=== PATIENT | male | born 1975 | race Caucasian/White ===

== ENCOUNTER → 2019-10-02 16:07 | Outpatient (CLI) | payer OTHER, SELFPAY ==
[2019-10-02 17:51] LABS: Coronavirus 19 IgG Antibody Negative (Negative); Coronavirus 19 IgM Antibody Negative (Negative)
[2019-10-04 14:51] LABS: Covid-19 Nasal PCR Sendout Lex Not Detected
== END ==
PROVIDERS: PCP Nurse Practitioner; Visit Provider Nurse Practitioner
DX: Z03.818 Encounter for observation for suspected exposure to other biological agents ruled out (principal)
CPT/HCPCS: 36415; 86328; U0004

== ENCOUNTER 2020-05-29 12:02 | Emergency (ER) | payer BC, SELFPAY ==
[2020-05-29 12:11] VITALS: BP 195/89; PULSE 105; RESP 16; TEMP 36.6; O2SAT 98; BMI 31.0
--- NOTE | 2020-05-29 12:21 | HMH.EDGENADL ---
ED Disposition Clinical Impression: Swelling of both hands, Bilateral swelling of feet, Psoriatic arthritis, Psoriasis Rheumatoid arthritis Qualifiers: Rheumatoid arthritis location: unspecified site Rheumatoid factor presence: unspecified presence Qualified Code(s): M06.9 - Rheumatoid arthritis, unspecified Disposition: Home, Self-Care Condition on Discharge: Good Instructions: DI for Psoriatic Arthritis, DI for Psoriasis, DI for Rheumatoid Arthritis Additional Instructions: Call Dr. Morales on Sunday for follow-up. Referrals: Ariana España APRN [Primary Care Provider] - - Critical Care Critical Care Time: No Attestation: On 05/29/20, the high probability of a clinically significant, sudden or life threatening deterioration of the following system(s) required my full and direct attention, intervention and personal management. The time I documented below is in addition to time spent performing reported procedures but includes the following listed in this critical care notation. Medical Decision Making - Alex Inquiry Pt receiving controlled substance: No Vital Signs: 05/29/20 12:11 05/29/20 12:38 Temperature 98 F Temperature Source Oral Pulse Rate [Radial] 105 H 102 H Respiratory Rate 16 Blood Pressure [Right Arm] 195/89 H 186/86 H Blood Pressure Mean [Right Arm] 124 119 Blood Pressure Source [Right Arm] Automatic Cuff Blood Pressure Position [Right Arm] Sitting Sitting 02 Sat by Pulse Oximetry 98 97 Oxygen Delivery Method Room Air Room Air - Lab Data Lab Results 05/29/20 12:55: WBC 10.3, RBC 5.47, Hgb 16.4, Hct 50.0, MCV 91.5, MCH 29.9, MCHC 32.7, RDW 13.3, Plt Count 208, MPV 7.6, Neut % (Auto) 76.3, Lymph % (Auto) 15.5, [place] % (Auto) 4.4, Eos % (Auto) 3.4, Baso % (Auto) 0.3, Neut # (Auto) 7.9 H, Lymph # (Auto) 1.6, [place] # (Auto) 0.5, Eos # (Auto) 0.4, Baso # (Auto) 0.0 05/29/20 12:55: Sodium 140, Potassium 3.9, Chloride 108 H, Carbon Dioxide 27, Anion Gap 8.9, BUN 11, Creatinine 0.90, Estimated Creat Clear 138, Estimated GFR 91, Est GFR ( Amer) 110, Glucose 111 H, Calcium 9.1, Total Bilirubin 1.1, AST 29, ALT 23, Alkaline Phosphatase 85, Total Protein 7.3, Albumin 4.3, Globulin 3.0, Albumin/Globulin Ratio 1.4 Result diagrams: 05/29/20 12:55 05/29/20 12:55 - Physician Consults Physician Consulted: Ton Morales Time: 13:40 Reason -: Other (Rheumatology) Comment/Response: Recommends that the patient follow-up with Dr. Hill on Sunday. The patient only takes methotrexate once a week, therefore does not require any change in his dosing at this time. Discussed steroids. He says that steroids may help the patient's joint swelling and pain in the short-term but could cause a flare of his psoriatic rash. If patient desires steroids he would recommend a Medrol Dosepak. I discussed this with the patient. 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 I will order an injection of Decadron. General Adult HPI - General Chief complaint: PAIN Stated complaint: Swollen both hands/arms/ legs Time Seen by Provider: 05/29/20 12:37 Mode of Arrival: Ambulatory Limitations: No Limitations Description of Symptoms (Recalled from ER Triage Doc. by RN): TO ED PER [employer] CAR WITH C/O JESSICA HANDS AND FEET SWELLING STARTING YESTERDAY C/O JOINT PAIN. PT RECENTLY TAKEN OFF REMICADE AND PLACED BACK ON METHOTREXATE THIS WEEK. - History of Present Illness HPI narrative: Complains of hands, feet, forearms swelling since yesterday. Says it was hard to get his boots off after work yesterday. His joints in his hands were sore yesterday but that has improved today. He has generalized itching as well. He has psoriasis, psoriatic arthritis, and rheumatoid arthritis. He sees Dr. Morales in [place]. He states that he was on Remicade for the past 3 to 4 months. Prior to that he had been on methotrexate.
[2020-05-29 12:38] VITALS: BP 186/86; PULSE 102; O2SAT 97
[2020-05-29 13:10] LABS: Chloride 108 mmol/L (98-107); Potassium 3.9 mmoL/L (3.5-5.1); Sodium 140 mmol/L (136-145)
[2020-05-29 13:11] LABS: Basophils % 0.3 % (0.1-2.0); Eosinophils # 0.4 K/mm3 (0.0-0.4); Eosinophils % 3.4 % (0.1-12.0); Hemoglobin 16.4 g/dL (14.1-18.0); Lymphocytes # 1.6 K/mm3 (0.7-4.5); Lymphocytes % 15.5 % (10-50); Mean Corpuscular HGB Conc 32.7 g/dL (31.8-35.4); Mean Corpuscular Hemoglobin 29.9 pg (27.0-31.2); Mean Corpuscular Volume 91.5 fl (80-94); Mean Platelet Volume 7.6 fl (7.4-10.4); Monocytes # 0.5 K/mm3 (0.1-1.0); Monocytes % 4.4 % (1.7-9.3); Neutrophils # 7.9 K/mm3 (1.8-7.8); Neutrophils % 76.3 % (37.0-80.0); Platelet Count 208 K/mm3 (142-424); Red Blood Count 5.47 M/mm3 (4.60-6.20); Red Cell Distribution Width 13.3 % (11.5-17.5); White Blood Count 10.3 K/mm3 (4.8-10.8)
[2020-05-29 13:13] LABS: Alanine Aminotransferase 23 U/L (12-78); Albumin Level 4.3 g/dl (3.5-5.0); Albumin/Globulin Ratio 1.4 (1.1-1.8); Alkaline Phosphatase 85 U/L (38-126); Anion Gap 8.9 mEq/L (5-15); Aspartate Amino Transferase 29 U/L (17-59); Bilirubin,Total 1.1 mg/dl (0.2-1.3); Blood Urea Nitrogen 11 mg/dl (9-20); Carbon Dioxide 27 mmol/L (22.0-30.0); Creatinine Clearance Estimated 138 mL/min (50-200); Estimated Glomerular Filt Rate 91 ml/min (>60); GFR (African American) 110 ML/MIN (>60); Total Protein,Serum 7.3 g/dl (6.3-8.2)
[2020-05-29 13:14] LABS: Calcium 9.1 mg/dl (8.4-10.2); Glucose 111 mg/dl (74-100)
[2020-05-29 13:34] VITALS: PULSE 90; RESP 20; O2SAT 99
--- NOTE | 2020-05-29 13:36 | PC.NURSE ---
attempting to contact pts rheumatoid
--- NOTE | 2020-05-29 13:37 | PC.NURSE ---
Dr Stephen speaking with [employer] MD for rheumatoid
[2020-05-29 14:00] VITALS: BP 141/65; PULSE 94; RESP 20; TEMP 36.6; O2SAT 98
== END 2020-05-29 14:04 | disposition home or self-care (01) ==
PROVIDERS: Emergency Provider Emergency Medicine; PCP Nurse Practitioner
DX: L40.50 Arthropathic psoriasis, unspecified (principal); L40.9 Psoriasis, unspecified; M06.9 Rheumatoid arthritis, unspecified; Z79.899 Other long term (current) drug therapy; F17.210 Nicotine dependence, cigarettes, uncomplicated
CPT/HCPCS: 80053; 85025; 96374; 99282

== ENCOUNTER → 2021-12-22 14:55 | Outpatient (CLI) | payer BC, SELFPAY ==
[2021-12-22 18:43] LABS: Coronavirus 19, PCR Not Detected (NotDetected); Influenza A, PCR Not Detected (NotDetected); Influenza B, PCR Not Detected (NotDetected)
[2021-12-22 19:11] LABS: Basophils # 0.1 K/mm3 (0-0.2); Basophils % 0.9 % (0.1-2.0); Eosinophils # 0.2 K/mm3 (0.0-0.4); Eosinophils % 3.7 % (0.1-12.0); Hematocrit 53.1 % (42.0-52.0); Hemoglobin 17.6 g/dL (14.1-18.0); Lymphocytes # 2.1 K/mm3 (0.7-4.5); Lymphocytes % 35.3 % (10-50); Mean Corpuscular HGB Conc 33.1 g/dL (31.8-35.4); Mean Corpuscular Hemoglobin 30.8 pg (27.0-31.2); Mean Corpuscular Volume 93.1 fl (80-94); Mean Platelet Volume 10.3 fl (7.4-10.4); Monocytes # 0.6 K/mm3 (0.1-1.0); Monocytes % 10.2 % (1.7-9.3); Platelet Count 290 K/mm3 (142-424); Red Blood Count 5.71 M/mm3 (4.60-6.20); Red Cell Distribution Width 13.7 % (11.5-17.5)
== END ==
PROVIDERS: PCP Nurse Practitioner; Visit Provider Nurse Practitioner
DX: Z20.822 Contact with and (suspected) exposure to COVID-19 (principal); J06.9 Acute upper respiratory infection, unspecified
CPT/HCPCS: 85025; C9803; U0003; U0005

== ENCOUNTER → 2022-08-28 12:24 | Outpatient (CLI) | payer BC, SELFPAY ==
--- NOTE | 2022-08-28 12:32 | XR_ITS ---
FINAL REPORT CLINICAL HISTORY: chest pain, acute URI-- smoker COMPARISON: none FINDINGS: PA and lateral views of the chest are obtained. There is no prior exam for comparison. The cardiac and mediastinal silhouettes are within normal limits. The lungs are clear. There is no pleural effusion, pneumothorax, or acute osseous abnormality. IMPRESSION: No radiographic evidence of acute cardiac or pulmonary disease. Reviewed, Interpreted and Dictated by Kayla Khalil MD Transcribed by Mcakenzie Powers Authenticated and [facility]
[2022-08-28 12:44] LABS: Adenovirus,PCR Not Detected (NotDetected); Bordetella Pertussis Not Detected (NotDetected); Chlamydophila Pneumoniae, PCR Not Detected (NotDetected); Coronavirus 19, PCR Not Detected (NotDetected); Coronavirus 229E Not Detected (NotDetected); Coronavirus NL63 Not Detected (NotDetected); Coronavirus OC43 Not Detected (NotDetected); Coronovirus HKU1,PCR Not Detected (NotDetected); Human Metapneumovirus Not Detected (NotDetected); Influenza A, PCR Not Detected (NotDetected); Influenza AH1, 2009 Not Detected (NotDetected); Influenza AH1, PCR Not Detected (NotDetected); Influenza AH3,PCR Not Detected (NotDetected); Influenza B, PCR Not Detected (NotDetected); Mycoplasma Pneumoniae, PCR Not Detected (NotDetected); Parainfluenza 1, PCR Not Detected (NotDetected); Parainfluenza 2, PCR Not Detected (NotDetected); Parainfluenza 3, PCR Not Detected (NotDetected); Parainfluenza 4, PCR Not Detected (NotDetected); Respiratory Syncytial Virus Not Detected (NotDetected); Rhinovirus/Enterovirus Not Detected (NotDetected)
--- NOTE | 2022-08-28 13:03 | ECG_ITS ---
APPROVED REPORT Exam: Resting ECG HR:88 bpm ECG Measurements Heart Rate 88 AXES NE 163 P 36 QRSd 94 QRS 52 QT 346 T 44 QTc 392 Conclusion SINUS RHYTHM NORMAL ECG UNCONFIRMED REPORT Electronically signed by : Edgardo Orellana MD 08/28/2022 21:21:34
[2022-08-28 13:19] LABS: D-Dimer 1.01 ug/mL (0.0-0.5)
[2022-08-28 13:48] LABS: Hemoglobin A1C 5.3 % (4.0-6.0)
[2022-08-28 14:39] LABS: Alanine Aminotransferase 166 U/L (12-78); Albumin/Globulin Ratio 1.6 (1.1-1.8); Alkaline Phosphatase 116 U/L (38-126); Anion Gap 15.1 mEq/L (5-15); Aspartate Amino Transferase 112 U/L (17-59); Bilirubin,Total 0.6 mg/dl (0.2-1.3); Blood Urea Nitrogen 13 mg/dl (9-20); Calcium 8.6 mg/dl (8.4-10.2); Carbon Dioxide 29 mmol/L (22.0-30.0); Chloride 99 mmol/L (98-107); Estimated Glomerular Filt Rate 80 ml/min (>60); GFR (African American) 97 ML/MIN (>60); Globulin 2.5 g/dL (1.3-3.2); Glucose 106 mg/dl (74-100); Potassium 4.1 mmoL/L (3.5-5.1); Sodium 139 mmol/L (136-145); Total Protein,Serum 6.5 g/dl (6.3-8.2)
[2022-08-28 14:56] LABS: Troponin I < 0.01 ng/ml (0.00-0.034)
[2022-08-28 15:09] LABS: Basophils % 0.3 % (0.1-2.0); Eosinophils % 0.3 % (0.1-12.0); Hematocrit 47.2 % (42.0-52.0); Hemoglobin 15.3 g/dL (14.1-18.0); Lymphocytes # 0.4 K/mm3 (0.7-4.5); Lymphocytes % 5.3 % (10-50); Mean Corpuscular HGB Conc 32.5 g/dL (31.8-35.4); Mean Corpuscular Hemoglobin 29.6 pg (27.0-31.2); Mean Corpuscular Volume 91.1 fl (80-94); Mean Platelet Volume 8.4 fl (7.4-10.4); Monocytes # 0.6 K/mm3 (0.1-1.0); Monocytes % 7.2 % (1.7-9.3); Neutrophils # 7.2 K/mm3 (1.8-7.8); Neutrophils % 86.9 % (37.0-80.0); Platelet Count 194 K/mm3 (142-424); Red Blood Count 5.18 M/mm3 (4.60-6.20); Red Cell Distribution Width 14.1 % (11.5-17.5); Thyroid Stimulating Hormone 0.24 uIU/mL (0.465-4.68); White Blood Count 8.2 K/mm3 (4.8-10.8)
[2022-08-28 15:11] LABS: MANUAL DIFFERENTIAL MANUAL DIFFERENTIAL (MANUAL DIFF)
[2022-08-28 17:29] LABS: Lymphocytes % 2 % (10-50); Monocytes % 10 % (2-9); Neutrophils % 88 % (42-76); Platelet Estimate Normal; RBC Morphology Normal; Total Cells Counted 100
== END ==
PROVIDERS: PCP Nurse Practitioner; Visit Provider Nurse Practitioner
DX: J06.9 Acute upper respiratory infection, unspecified (principal); R07.9 Chest pain, unspecified; R61 Generalized hyperhidrosis
CPT/HCPCS: 36415; 71046; 80053; 83036; 84443; 84484; 85007; 85025; 85378; 87581; 87632; 87635; 87798; 93005; C9803; U0003; U0005

== ENCOUNTER 2022-08-30 10:55 | Observation (INO) | payer BC, SELFPAY ==
[2022-08-30] VITALS (24 sets, daily range): BP systolic 103–127; BP diastolic 62–95; PULSE 84–126; RESP 13–21; TEMP 37.3–39.4; O2SAT 93–98; BMI 31.5; BMI 29.9
--- NOTE | 2022-08-30 11:05 | ECG_ITS ---
APPROVED REPORT Exam: Resting ECG HR:119 bpm ECG Measurements Heart Rate 119 AXES OR 120 P 28 QRSd 93 QRS 66 QT 292 T 44 QTc 363 Conclusion SINUS TACHYCARDIA ABNORMAL RHYTHM ECG UNCONFIRMED REPORT Electronically signed by : Edgardo Orellana MD 08/31/2022 09:27:45
--- NOTE | 2022-08-30 11:19 | XR_ITS ---
FINAL REPORT CLINICAL HISTORY: DIZZINESS fever non productive cough tested neg for flu and covid sunday COMPARISON: 08/28/2022 FINDINGS: There is no evidence of effusion or other pleural disease. The mediastinum has a normal appearance. The cardiac silhouette is unremarkable. IMPRESSION: Unremarkable chest exam. No change from the prior exam. Reviewed, Interpreted and Dictated by Ryan Gonsalez MD Transcribed by Susanna Vanessa Authenticated and [facility]
--- NOTE | 2022-08-30 11:25 | HMH.EDNVD ---
Discharge Plan Disposition Patient Disposition: Admitted Prescriptions Prescriptions: No Action albuterol sulfate 90 mcg/actuation HFA aerosol inhaler 2 puff inhalation Q4-6H PRN (Reason: shortness of breath or wheezing) Qty: 8.5 0RF folic acid 1 mg tablet 1 mg PO DAILY Label Comments: TAKE 1 TABLET BY MOUTH EVERY DAY prednisone 20 mg tablet 20 mg PO .COMPLEX Rx Instructions: 20 mg orally BID x 5 days then daily x 5 days dextromethorphan-guaifenesin 60-1,200 mg tablet extended release 12 hr 1 tab PO Q12H levofloxacin 500 mg tablet 500 mg PO Q24H methotrexate sodium 2.5 MG tablet 2.5 mg PO DAILY Referrals Follow up/Referrals: Ariana España APRN [Primary Care Provider] - See instructions Clinical Impressions Clinical Impression: Cardiomyopathy Discharge ED Provider: Chi Salazar Nausea/Vomiting/Diarrhea HPI General Chief complaint: Nausea/Vomiting/Diarrhea Stated complaint: vomiting, body aches, dizzy , h/a Time Seen by Provider: 08/30/22 11:25 Mode of Arrival: Wheelchair Source of Information: Patient and Spouse Limitations: No Limitations Description of Symptoms (Recalled from ER Triage Doc. by RN): PT REPORTS VOMITING, DIZZINESS, COUGH, CHILLS AND SWEATING, SEEEN BY PCP ON SUNDAY. GIVEN ABX, STERIODS FOR BACTERIAL INFECTION History of Present Illness HPI Narrative: The patient presents to the emergency department complaining of fevers, abdominal discomfort, and vomiting. This began 2 days ago. He was seen by his primary care provider and was prescribed Levaquin and diagnosed with bacterial bronchitis. The patient does take methotrexate for psoriatic arthritis. He states that he had diarrhea yesterday and before yesterday. However, he did not have any diarrhea today. He feels generalized weakness. MD complaint: nausea, vomiting, diarrhea and abdominal pain Related Data Home Medications Medication Instructions Recorded Confirmed methotrexate sodium 2.5 mg tablet 2.5 mg PO DAILY Arthritis 12/11/17 08/30/22 dextromethorphan-guaifenesin ER 60 1 tab PO Q12H Cough/cold 08/30/22 08/30/22 mg-1,200 mg tab,extend release,12hr folic acid 1 mg tablet 1 mg PO DAILY Supplement 08/30/22 08/30/22 levofloxacin 500 mg tablet 500 mg PO Q24H Infection 08/30/22 08/30/22 prednisone 20 mg tablet 20 mg PO .COMPLEX RECENT INFECTION 08/30/22 08/30/22 Previous Rx's Medication Instructions Recorded albuterol sulfate 90 mcg/actuation 2 puff inhalation Q4-6H PRN 08/28/22 aerosol inhaler shortness of breath or wheezing #8.5 grams Allergies Allergy/AdvReac Type Severity Reaction Status Date / Time No Known Allergies Allergy Verified 08/28/22 10:40 [facility] Disclaimer: The information contained in this section may have been updated after the patient was seen, as this information can be updated by other users. Medical History Arthritis Hypertension Psoriasis Surgical History History of foot surgery Social History Smoking Status: Current every day smoker tobacco type: cigarettes alcohol intake: never current occupational status: employed Travel in the last 8 weeks: None ROS Obtained: Yes All systems reviewed & no additional complaints except as documented Physical Exam General General appearance: alert Head Head exam: atraumatic Eye Eye exam: Present normal appearance; Absent scleral icterus or jaundice ENT ENT exam: Present normal exam Neck Neck exam: Present normal inspection and full ROM; Absent tenderness or meningismus Chest Chest inspection: Present normal inspection and symmetric chest wall rise; Absent tenderness Respiratory Respiratory exam: Present normal lung sounds bilaterally; Absent respiratory distress or accessory muscle use Cardiovascular Ca
--- NOTE | 2022-08-30 11:29 | PC.NURSE ---
PT TO RADIOLOGY
[2022-08-30 11:35] LABS: Lactic Acid 0.9 mmol/L (0.7-2.1)
[2022-08-30 11:36] LABS: Basophils % 0.3 % (0.1-2.0); Chloride 95 mmol/L (98-107); Eosinophils # 0.1 K/mm3 (0.0-0.4); Hemoglobin 15.7 g/dL (14.1-18.0); Lymphocytes # 0.6 K/mm3 (0.7-4.5); Mean Corpuscular HGB Conc 32.6 g/dL (31.8-35.4); Mean Corpuscular Hemoglobin 29.6 pg (27.0-31.2); Mean Corpuscular Volume 90.8 fl (80-94); Mean Platelet Volume 7.8 fl (7.4-10.4); Monocytes # 0.4 K/mm3 (0.1-1.0); Monocytes % 4.4 % (1.7-9.3); Neutrophils # 8.7 K/mm3 (1.8-7.8); Neutrophils % 88.3 % (37.0-80.0); Platelet Count 220 K/mm3 (142-424); Red Blood Count 5.29 M/mm3 (4.60-6.20); Red Cell Distribution Width 14.2 % (11.5-17.5); Sodium 135 mmol/L (136-145); White Blood Count 9.8 K/mm3 (4.8-10.8)
[2022-08-30 11:37] LABS: Potassium 3.5 mmoL/L (3.5-5.1)
[2022-08-30 11:39] LABS: Alanine Aminotransferase 195 U/L (12-78); Alkaline Phosphatase 161 U/L (38-126); Anion Gap 13.5 mEq/L (5-15); Aspartate Amino Transferase 200 U/L (17-59); Blood Urea Nitrogen 15 mg/dl (9-20); Calcium 8.4 mg/dl (8.4-10.2); Carbon Dioxide 30 mmol/L (22.0-30.0); Creatinine Clearance Estimated 116 mL/min (50-200); Estimated Glomerular Filt Rate 71 ml/min (>60); GFR (African American) 86 ML/MIN (>60); Glucose 109 mg/dl (74-100); Lipase 94 U/L (23-300)
[2022-08-30 11:40] LABS: Albumin Level 3.8 g/dl (3.5-5.0); Albumin/Globulin Ratio 1.2 (1.1-1.8); Globulin 3.1 g/dL (1.3-3.2); Total Protein,Serum 6.9 g/dl (6.3-8.2)
[2022-08-30 11:45] LABS: MANUAL DIFFERENTIAL MANUAL DIFFERENTIAL (MANUAL DIFF)
--- NOTE | 2022-08-30 11:55 | PC.NURSE ---
CRITICAL TROP RECEIVED FROM TORREY IN LAB. 22.3. PT NAME AND R/V. DR CREWS NOTIFIED. ORDERS RECEIVED AT THIS TIME
--- NOTE | 2022-08-30 11:59 | PC.NURSE ---
PT GIVEN ASA AND UPDATED ON POC. AT BEDSIDE
[2022-08-30 12:01] LABS: Microscopic, Urine URINE MICROSCOPIC (MICROSCOPIC)
[2022-08-30 12:03] LABS: Appearance,Urine CLEAR (Clear); Blood, Urine 2+ (Negative); Color,Urine AMBER (Yellow); Glucose,Urine (UA) Negative (Negative); Ketones,Urine TRACE (Negative); Leukocyte Esterase,Urine Negative (Negative); Nitrate,Urine Negative (Negative); Protein,Urine 2+ (Negative); Specific Gravity, Urine 1.025 (1.005-1.030); Urobilinogen,Urine >=8.0 EU/dl (0.2)
[2022-08-30 12:07] LABS: Bilirubin,Urine Negative (Negative)
--- NOTE | 2022-08-30 12:11 | PC.NURSE ---
leads to baker paint moved for better connection. Explained to why they were being moved
[2022-08-30 12:19] LABS: Bacteria,Urine 3+ /lpf; Squamous Epithelial Cell,Urine Occasional #/hpf (0-5); WBC,Urine Occasional #/hpf (0-3)
--- NOTE | 2022-08-30 12:35 | PC.NURSE ---
DR CREWS AT BEDSIDE TO UPDATE PT AND
[2022-08-30 12:39] LABS: Anisocytosis 1+; Lymphocytes % 11 % (10-50); Macrocytosis 1+; Monocytes % 6 % (2-9); Neutrophils % 83 % (42-76); Platelet Estimate Normal; Total Cells Counted 100
--- NOTE | 2022-08-30 12:51 | PC.NURSE ---
ROUNDED ON PT, UPDATED AT THIS TIME
--- NOTE | 2022-08-30 12:55 | PC.NURSE ---
ECHO AT BEDSIDE
--- NOTE | 2022-08-30 12:57 | PC.NURSE ---
CHARIS PHAM FROM CARDIOLOGY AT BEDSIDE
[2022-08-30 13:13] LABS: Coronavirus 19, PCR Not Detected (NotDetected); Influenza A, PCR Not Detected (NotDetected); Influenza B, PCR Not Detected (NotDetected)
--- NOTE | 2022-08-30 13:31 | PC.NURSE ---
DR CREWS SPEAKING WITH HOSPITALIST
--- NOTE | 2022-08-30 13:31 | EXP.CARD.CON ---
History of Present Illness History of Present Illness Consult date: 08/30/22 Requesting physician: Chi Salazar Consult reason: shortness of breath Chief complaint: SOA, weakness, Vomiting Additional Medical History:: 1. Tobacco use, 1 pack/day 2. Nausea, vomiting and weakness, 08/28/2022 A. Elevated troponins with mild cardiomyopathy (EF 40-45% on preliminary viewing) on echo without acute EKG changes History of present illness: The patient presents to the emergency department complaining of fevers, abdominal discomfort, and vomiting.? This began 2 days ago.? He was seen by his primary care provider and was prescribed Levaquin and diagnosed with bacterial bronchitis.? The patient does take methotrexate for psoriatic arthritis.? He states that he had diarrhea yesterday and before yesterday.? However, he did not have any diarrhea today.? He feels generalized weakness. MD complaint: nausea, vomiting, diarrhea and abdominal pain The above per Dr. Salazar Patient confirms events as noted above. He denies any history of cardiac problems. He does smoke. Nondiabetic Denies hypertension or hyperlipidemia Echocardiogram obtained in the ER with preliminary reading showing apical hypokinesis and EF of 40-45%. Discussed with Dr. Yoder and recommend proceeding with left heart catheterization to rule out coronary artery disease as etiology. Likely patient has viral myocarditis/cardiomyopathy due to recent upper respiratory infection. [facility] Disclaimer: The information contained in this section may have been updated after the patient was seen, as this information can be updated by other users. Medical History Arthritis Hypertension Psoriasis Surgical History History of foot surgery Social History Smoking Status: Current every day smoker tobacco type: cigarettes alcohol intake: never current occupational status: employed Travel in the last 8 weeks: None Review of Systems Review of Systems Review of systems:: pertinent systems reviewed and negative unless documented below Constitutional Constitutional: Reports weakness *Cardiovascular Cardiovascular: Denies chest pain and Reports dyspnea on exertion *Respiratory Respiratory: Reports dyspnea on exertion *Gastrointestinal Gastrointestinal: Reports vomiting *Neurologic Neurologic: Reports weakness Exam Data for Last 24 hours Vital signs and Labs for Last 24 Hours: Temp Pulse Resp BP Pulse Ox 102.9 F H 116 H 21 112/77 96 08/30/22 10:56 08/30/22 11:57 08/30/22 11:57 08/30/22 11:57 08/30/22 11:57 Laboratory Results - last 24 hr 08/30/22 11:12: WBC 9.8, RBC 5.29, Hgb 15.7, Hct 48.0, MCV 90.8, MCH 29.6, MCHC 32.6, RDW 14.2, Plt Count 220, MPV 7.8, Neut % (Auto) 88.3 H, Lymph % (Auto) 6.0 L, [place] % (Auto) 4.4, Eos % (Auto) 1.0, Baso % (Auto) 0.3, Neut # (Auto) 8.7 H, Lymph # (Auto) 0.6 L, [place] # (Auto) 0.4, Eos # (Auto) 0.1, Baso # (Auto) 0.0, Total Counted 100, Neutrophils % (Manual) 83 H, Lymphocytes % (Manual) 11, Monocytes % (Manual) 6, Platelet Estimate Normal, Anisocytosis 1+, Macrocytosis 1+ 08/30/22 11:12: Sodium 135 L, Potassium 3.5, Chloride 95 L, Carbon Dioxide 30, Anion Gap 13.5, BUN 15, Creatinine 1.10, Estimated Creat Clear 116, Estimated GFR 71, Est GFR ( Amer) 86, Glucose 109 H, Calcium 8.4, Total Bilirubin 1.0, AST 200 H D, ALT 195 H, Alkaline Phosphatase 161 H, Troponin I 22.30 H, Total Protein 6.9, Albumin 3.8, Globulin 3.1, Albumin/Globulin Ratio 1.2, Lipase 94 08/30/22 11:12: Lactate 0.9 08/30/22 11:55: Urine Color Mena, Urine Appearance Clear, Urine pH 6.0, Ur Specific [place] 1.025, Urine Protein 2+, Urine Glucose (UA) Negative, Urine Ketones Trace, Urine Blood 2+, Urine Nitrate Negative, Urine Bilirubin Negative, Urine Urobilinogen >=8.0, Ur Leukocyte Esterase Negat
--- NOTE | 2022-08-30 13:33 | IR_ITS ---
APPROVED REPORT Patient Location: Inpatient PROCEDURES Left heart catheterization Left ventriculogram Selective coronary angiogram INDICATION Acute non-ST elevation myocardial infarction based on elevated troponin, Suspected myocarditis Informed consent was obtained prior to the procedure. COMPLICATIONS None Estimated Blood Loss: Less than 10 ML TECHNIQUE One percent lidocaine used to anesthetize the right anterior aspect of the wrist. The right radial artery was accessed via the Seldinger technique. A 6 [place] sheath was placed in the right radial artery. 150 mg magnesium sulfate, 800 mcg of nitroglycerin, 1mg Lidocaine and 5000 U Heparin were given through the arterial sheath. The papa catheter was also used to perform left heart catheterization, left ventriculogram and selective coronary angiogram. At the end of the procedure the sheath was removed good hemostasis was achieved using Traclet band, patient was transferred to the postop holding area in stable condition. 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 Standard therapy for myocarditis 2. Carvedilol Entresto 3. Empiric treatment for Lyme myocarditis with antibiotics until Lyme titers return 4. Supportive care Electronically signed by : Kurtis Yoder MD 08/31/2022 10:38:28
--- NOTE | 2022-08-30 14:10 | PC.NURSE ---
CONSENT SIGNED AND PT PREPPED FOR HEART CATH
[2022-08-30 14:50] LABS: Thyroid Stimulating Hormone 0.57 uIU/mL (0.465-4.68)
--- NOTE | 2022-08-30 14:52 | PC.NURSE ---
CM CONTACTED TO FOR ADMISSION
--- NOTE | 2022-08-30 15:02 | SUR.OPER ---
upon arrival to cathlab , patient was noted to have a large bullseye rash to left side abdomen
[2022-08-30 15:09] LABS: Hemoglobin A1C 5.3 % (4.0-6.0)
--- NOTE | 2022-08-30 15:37 | PC.NURSE ---
arrived by shalomer from cardiac catheterization technician
--- NOTE | 2022-08-30 20:07 | EXP.HP ---
History of Present Illness *Admission Date: 08/30/22 *Reason for visit:: weakness, elevated troponin *History of present illness: Mr. Garvin is a 46-year-old male with history of psoriatic arthritis who presented to the ER with complaint of fever, abdominal discomfort, vomiting that began 2 to 3 days ago. He was seen by his primary care provider and prescribed Levaquin due to an elevated white count and diagnosis of bacterial bronchitis. Did not feel any better so he came to the ER today for further evaluation. Of note he takes methotrexate and folic acid daily for psoriatic arthritis. States that he had had diarrhea yesterday but has not had any further today. Overall feels weak. Denies any chest pain, shortness of breath. In the ER, evaluation positive for elevated liver enzymes and troponin of 22. Cardiology was consulted and patient was taken to the [facility]. On evaluation in the [facility] he was found to have a targetoid lesion on his left hip. Left heart cath performed with no occlusions or coronary artery disease identified. Echocardiogram obtained showing preliminary read with decreased EF of 40 to 45% and some apical hypokinesis. Cardiology concern for cardiomyopathy/myocarditis. Requested admission for monitoring overnight after heart cath. On evaluation, patient is stable without any chest pain on room air. Family at bedside. Feeling okay at this time. [facility] Disclaimer: The information contained in this section may have been updated after the patient was seen, as this information can be updated by other users. Medical History Arthritis Hypertension Psoriasis Surgical History History of foot surgery Social History Smoking Status: Current every day smoker tobacco type: cigarettes alcohol intake: never current occupational status: employed Travel in the last 8 weeks: None Review of Systems Review of Systems Review of systems (narrative): 14 point review of systems performed, pertinent positives and negatives as per HPI Constitutional Constitutional: Reports weakness *Neurologic Neurologic: Reports weakness Meds Home Medications and Allergies Home Medications Medication Instructions Recorded Confirmed Type methotrexate sodium 2.5 mg tablet 2.5 mg PO DAILY Arthritis 12/11/17 08/30/22 History albuterol sulfate 90 mcg/actuation 2 puff inhalation Q4-6H PRN 08/28/22 08/30/22 Rx aerosol inhaler shortness of breath or wheezing #8.5 grams dextromethorphan-guaifenesin ER 60 1 tab PO Q12H Cough/cold 08/30/22 08/30/22 History mg-1,200 mg tab,extend release,12hr folic acid 1 mg tablet 1 mg PO DAILY Supplement 08/30/22 08/30/22 History levofloxacin 500 mg tablet 500 mg PO Q24H Infection 08/30/22 08/30/22 History prednisone 20 mg tablet 20 mg PO .COMPLEX RECENT INFECTION 08/30/22 08/30/22 History New Prescriptions to Start Prescriptions: Allergies Allergy/AdvReac Type Severity Reaction Status Date / Time No Known Allergies Allergy Verified 08/28/22 10:40 Exam Data for Last 24 hours Vital signs and Labs for Last 24 Hours: Temp Pulse Resp BP Pulse Ox 99.1 F 89 19 116/73 98 08/30/22 14:30 08/30/22 18:20 08/30/22 18:20 08/30/22 18:20 08/30/22 18:20 Laboratory Results - last 24 hr 08/30/22 11:12: WBC 9.8, RBC 5.29, Hgb 15.7, Hct 48.0, MCV 90.8, MCH 29.6, MCHC 32.6, RDW 14.2, Plt Count 220, MPV 7.8, Neut % (Auto) 88.3 H, Lymph % (Auto) 6.0 L, [place] % (Auto) 4.4, Eos % (Auto) 1.0, Baso % (Auto) 0.3, Neut # (Auto) 8.7 H, Lymph # (Auto) 0.6 L, [place] # (Auto) 0.4, Eos # (Auto) 0.1, Baso # (Auto) 0.0, Total Counted 100, Neutrophils % (Manual) 83 H, Lymphocytes % (Manual) 11, Monocytes % (Manual) 6, Platelet Estimate Normal, Anisocytosis 1+, Macrocytosis 1+ 08/30/22 11:12: Sodium 135 L, Potassium 3.5, Chloride 95 L, Carbon Di
[2022-08-31] VITALS: BP 119/75; PULSE 92; PULSE 97; RESP 19; TEMP 37.2; O2SAT 96
[2022-08-31 04:00] VITALS: BP 121/77; PULSE 90; RESP 20; TEMP 37.1; O2SAT 98; BMI 29.3
--- NOTE | 2022-08-31 05:01 | PC.NURSE ---
Patient has rested comfortable tonight. Patient did complain of a headache see MAY. Radial band off and gauze and tegaderm in place.
[2022-08-31 06:05] LABS: Basophils % 0.4 % (0.1-2.0); Eosinophils # 0.3 K/mm3 (0.0-0.4); Eosinophils % 3.6 % (0.1-12.0); Hematocrit 47.1 % (42.0-52.0); Hemoglobin 15.2 g/dL (14.1-18.0); Lymphocytes # 1.2 K/mm3 (0.7-4.5); Lymphocytes % 14.3 % (10-50); Mean Corpuscular HGB Conc 32.2 g/dL (31.8-35.4); Mean Corpuscular Hemoglobin 29.1 pg (27.0-31.2); Mean Corpuscular Volume 90.4 fl (80-94); Mean Platelet Volume 7.7 fl (7.4-10.4); Monocytes # 0.5 K/mm3 (0.1-1.0); Monocytes % 6.2 % (1.7-9.3); Neutrophils # 6.3 K/mm3 (1.8-7.8); Neutrophils % 75.5 % (37.0-80.0); Platelet Count 224 K/mm3 (142-424); Red Blood Count 5.21 M/mm3 (4.60-6.20); Red Cell Distribution Width 14.3 % (11.5-17.5); White Blood Count 8.4 K/mm3 (4.8-10.8)
[2022-08-31 06:14] LABS: Chloride 101 mmol/L (98-107)
[2022-08-31 06:15] LABS: Potassium 3.3 mmoL/L (3.5-5.1); Sodium 135 mmol/L (136-145)
[2022-08-31 06:17] LABS: Alanine Aminotransferase 139 U/L (12-78); Alkaline Phosphatase 144 U/L (38-126); Anion Gap 10.3 mEq/L (5-15); Aspartate Amino Transferase 108 U/L (17-59); Bilirubin,Total 0.6 mg/dl (0.2-1.3); Blood Urea Nitrogen 16 mg/dl (9-20); Carbon Dioxide 27 mmol/L (22.0-30.0); Creatinine Clearance Estimated 128 mL/min (50-200); Estimated Glomerular Filt Rate 90 ml/min (>60); GFR (African American) 109 ML/MIN (>60)
[2022-08-31 06:18] LABS: Albumin Level 3.3 g/dl (3.5-5.0); Albumin/Globulin Ratio 1.2 (1.1-1.8); Calcium 8.1 mg/dl (8.4-10.2); Globulin 2.8 g/dL (1.3-3.2); Glucose 124 mg/dl (74-100); Magnesium 2.2 mg/dl (1.6-2.3); Total Protein,Serum 6.1 g/dl (6.3-8.2)
[2022-08-31 06:23] LABS: C-Reactive Protein 154.3 mg/L (0-4)
[2022-08-31 06:57] LABS: Erythrocyte Sedimentation Rate 31 mm/hr (0-15)
[2022-08-31 07:59] VITALS: BP 109/70; PULSE 90; RESP 18; TEMP 36.8; O2SAT 96
[2022-08-31 08:00] VITALS: PULSE 100; O2SAT 98
--- NOTE | 2022-08-31 08:46 | HMH.PHAINT1 ---
Pharmacy Intervention Comments: Home medication list verified through external fill history from outside pharmacy and patient's rx bottles.
[2022-08-31 09:00] VITALS: PULSE 80
--- NOTE | 2022-08-31 09:51 | PC.NURSE ---
COURTESY TECH NOTE; ROUNDED ON PT 0830, PT DENIED NEED FOR DRINK, NEED FOR RESTROOM, AND NEED TO REPOSITION,CALL LIGHT WITHIN REACH, NO FURTHER REQUESTS AT THIS TIME Melodie CLINE, SRNA
--- NOTE | 2022-08-31 09:57 | EXP.CARD.PN ---
Subjective Subjective Date: 08/31/22 Time: 09:57 Principal diagnosis: Lyme myocarditis, Cardiomyopathy Interval history: 46-year-old white male in bed in no acute distress. Since starting antibiotics patient states he feels 99% better Patient is anxious to go home. Lyme titer is pending Exam Data for Last 24 hours Vital signs and Labs for Last 24 Hours: Temp Pulse Resp BP Pulse Ox 98.2 F 100 H 18 109/70 L 98 08/31/22 07:59 08/31/22 08:00 08/31/22 07:59 08/31/22 07:59 08/31/22 08:00 Laboratory Results - last 24 hr 08/30/22 11:12: WBC 9.8, RBC 5.29, Hgb 15.7, Hct 48.0, MCV 90.8, MCH 29.6, MCHC 32.6, RDW 14.2, Plt Count 220, MPV 7.8, Neut % (Auto) 88.3 H, Lymph % (Auto) 6.0 L, [place] % (Auto) 4.4, Eos % (Auto) 1.0, Baso % (Auto) 0.3, Neut # (Auto) 8.7 H, Lymph # (Auto) 0.6 L, [place] # (Auto) 0.4, Eos # (Auto) 0.1, Baso # (Auto) 0.0, Total Counted 100, Neutrophils % (Manual) 83 H, Lymphocytes % (Manual) 11, Monocytes % (Manual) 6, Platelet Estimate Normal, Anisocytosis 1+, Macrocytosis 1+ 08/30/22 11:12: Sodium 135 L, Potassium 3.5, Chloride 95 L, Carbon Dioxide 30, Anion Gap 13.5, BUN 15, Creatinine 1.10, Estimated Creat Clear 116, Estimated GFR 71, Est GFR ( Amer) 86, Glucose 109 H, Calcium 8.4, Total Bilirubin 1.0, AST 200 H D, ALT 195 H, Alkaline Phosphatase 161 H, Troponin I 22.30 H, Total Protein 6.9, Albumin 3.8, Globulin 3.1, Albumin/Globulin Ratio 1.2, Lipase 94 08/30/22 11:12: Lactate 0.9 08/30/22 11:12: SARS-CoV-2 (PCR) Not detected, Influenza A Untype (PCR) Not detected, Influenza Type B (PCR) Not detected 08/30/22 11:12: Hemoglobin A1c 5.3 08/30/22 11:12: TSH 0.57 D 08/30/22 11:55: Urine Color Mena, Urine Appearance Clear, Urine pH 6.0, Ur Specific [place] 1.025, Urine Protein 2+, Urine Glucose (UA) Negative, Urine Ketones Trace, Urine Blood 2+, Urine Nitrate Negative, Urine Bilirubin Negative, Urine Urobilinogen >=8.0, Ur Leukocyte Esterase Negative, Urine RBC 3-5, Urine WBC Occasional, Ur Squamous Epith Cells Occasional, Urine Bacteria 3+ 08/30/22 14:20: Troponin I 25.80 H 08/31/22 05:46: WBC 8.4, RBC 5.21, Hgb 15.2, Hct 47.1, MCV 90.4, MCH 29.1, MCHC 32.2, RDW 14.3, Plt Count 224, MPV 7.7, Neut % (Auto) 75.5, Lymph % (Auto) 14.3, [place] % (Auto) 6.2, Eos % (Auto) 3.6, Baso % (Auto) 0.4, Neut # (Auto) 6.3, Lymph # (Auto) 1.2, [place] # (Auto) 0.5, Eos # (Auto) 0.3, Baso # (Auto) 0.0, ESR 31 H 08/31/22 05:46: Sodium 135 L, Potassium 3.3 L, Chloride 101, Carbon Dioxide 27, Anion Gap 10.3, BUN 16, Creatinine 0.90, Estimated Creat Clear 128, Estimated GFR 90, Est GFR ( Amer) 109 D, Glucose 124 H, Calcium 8.1 L, Magnesium 2.2, Total Bilirubin 0.6, AST 108 H D, ALT 139 H D, Alkaline Phosphatase 144 H, C-Reactive Protein 154.3 H, Total Protein 6.1 L, Albumin 3.3 L D, Globulin 2.8, Albumin/Globulin Ratio 1.2 I & O for Last 24 hours: Intake & Output 08/28/22 08/29/22 08/30/22 08/31/22 11:59 11:59 11:59 11:59 Intake Total 960 / 960 Output Total 300 / 300 Balance 660 / 660 Weight 220 lb 198 lb 6.4 oz Constitutional Constitutional: no acute distress *Routine Respiratory Exam Respiratory: Present CTA bilaterally *Routine Cardiovascular Exam Cardiovascular: Present RRR *Routine Neurological Exam Neurological: Present alert, oriented X3 and CN II-XII intact Progress Note: A&P Assessment and plan (1) Cardiomyopathy: Status: Acute (2) Elevated LFTs: Status: Acute (3) Elevated troponin: Status: Acute (4) Psoriatic arthritis: Status: Acute (5) Transaminitis: Status: Acute (6) Erythema migrans (Lyme disease): Status: Acute (7) Lyme carditis: Status: Acute Assessment and Plan Assessment and Plan for All Diagnoses:: 1. Lyme disease with Lyme carditis Patient is started on doxycycline Will add low-dose lisinopril 2.5 mg daily and bisoprolol 2.5 mg daily patient able to tolerate for cardiomyopathy Initial echo shows EF 40-45% with global hypokinesis 2.
[2022-08-31 10:34] LABS: Troponin I 5.66 ng/ml (0.00-0.034)
--- NOTE | 2022-08-31 14:02 | EXP.DC.SUM ---
General Admission date:: 08/30/22 Discharge date: 09/01/22 HPI HPI HPI: Mr. Garvin is a 46-year-old male with history of psoriatic arthritis who presented to the ER with complaint of fever, abdominal discomfort, vomiting that began 2 to 3 days ago. He was seen by his primary care provider and prescribed Levaquin due to an elevated white count and diagnosis of bacterial bronchitis. Did not feel any better so he came to the ER today for further evaluation. Of note he takes methotrexate and folic acid daily for psoriatic arthritis. States that he had had diarrhea yesterday but has not had any further today. Overall feels weak. Denies any chest pain, shortness of breath. In the ER, evaluation positive for elevated liver enzymes and troponin of 22. Cardiology was consulted and patient was taken to the [facility]. On evaluation in the [facility] he was found to have a targetoid lesion on his left hip. Left heart cath performed with no occlusions or coronary artery disease identified. Echocardiogram obtained showing preliminary read with decreased EF of 40 to 45% and some apical hypokinesis. Cardiology concern for cardiomyopathy/myocarditis. Requested admission for monitoring overnight after heart cath. On evaluation, patient is stable without any chest pain on room air. Family at bedside. Feeling okay at this time. Hospital Course Hospital Course Hospital Course: 46-year-old male with history of psoriatic arthritis who presents with weakness, nausea, vomiting.? Found to have elevated troponins in the ER and elevated liver enzymes.? Taken to the [facility].? During prep in the [facility], found to have a targetoid lesion on his left hip concerning for erythema migrans. Initiated on doxycycline. No significant coronary artery disease identified during heart cath. Continue with medical management overnight and observation. Stable for discharge home.? Problems addressed as follows: Elevated troponin Cardiomyopathy Transaminitis Erythema migrans Lyme cardiomyopathy/carditis -Cardiology consulted from the ER, patient taken urgently to the [facility] given troponin of 22.? He is currently chest pain-free.? Echo showing mild reduced EF 40 to 45% with apical hypokinesis. Heart cath with essentially normal coronaries.? Discussed case with cardiology.? They are concerned he has Lyme myocarditis/cardiomyopathy. Monitored on telemetry overnight. Blood pressure has remained stable during admission. Given presence of rash on left hip, elevated liver enzymes, nausea and vomiting, strong clinical concern for Lyme disease. Borrelia burgdorferi high titer sent, pending at discharge. Initiated on doxycycline 100 mg p.o. twice daily for 10-day course for empiric therapy. Symptoms improving by morning. Clinically suggestive of diagnosis. Counseled on need to complete course and adhere with regimen. Patient stable for discharge home. Follow-up with cardiology in the next 1 to 2 weeks. Overall symptoms do seem to be defervescing. Recommended he take the next week off from work and return for light duty the week thereafter. We will have repeat echo at follow-up with cardiology to evaluate for resolution of reduced ejection fraction. Psoriatic arthritis -Continue methotrexate and folic acid Stable for discharge home. Extensive counseling on expected course of disease, treatment course, side effects of medications. Spent 40 minutes in discharge counseling and direct care with patient. Exam Data for Last 24 hours Vital signs and Labs for Last 24 Hours: Temp Pulse Resp BP Pulse Ox 98.2 F 100 H 18 109/70 L 98 08/31/22 07:59 08/31/22 08:00 08/31/22 07:59 08/31/22 07:59 08/31/22 08:00 Laboratory Results - last 24 hr 08/30/22 11:12: Hemoglobin A1c 5.3 08/30/22 11:12: TSH 0.57 D 08/30/22 14:20: Troponin I 25.80 H 08/31/22 05:46: WBC 8.4, RBC 5.21, Hgb 15.2, Hct 47.1, MCV 90.4, MCH 29.1, MCHC 32.2, RDW 14.3, Plt Count 224, MPV 7.7, Neut % (Auto) 7
--- NOTE | 2022-08-31 15:05 | P.CONPHA_ITS ---
Pharmacy Intervention Comments: Discharge medication counseling completed. Patient was starting the following new meds: -bisoprolol: 2.5 mg daily. Reminded patient that 5 mg tabs were being sent in, so he would have to break them in half and only take half a tab a day. Patient said Dr. Sexton mentioned taking one of his new blood pressure meds at night. Although instructions on both did not specify a preferred time of day, I said he may want to take his first couple of doses of each at night rather than in the morning since they could potentially cause some dizziness and that, if this didn't occur, to take them at whatever time of day he preferred. -lisinopril: 5 mg daily. Said to watch for signs of hypotension from this and bi soprolol (dizziness, weakness) and to watch for possible side effect of dry cough. -doxycycline: 100 mg twice daily. Possible side effects of stomach upset and/or diarrhea and that taking with food may help to avoid this. The patient was told to stop taking levofloxacin, prednisone, and Mucinex, all of which he had received after a doctor's appointment earlier in the week. The patient verbalized understanding and had no questions.
[2022-09-06 18:06] LABS: Lyme B. burgdorferi PCR Blood Negative (Negative)
== END 2022-08-31 02:45 | disposition home or self-care (01) ==
LOC: ER 13:37 → 2ND 14:56
PROVIDERS: Internal Medicine; Physician Assistant; Admitting Provider Internal Medicine Adolescent Medicine; Emergency Provider Emergency Medicine; PCP Nurse Practitioner; Visit Provider Internal Medicine Adolescent Medicine
DX: I42.8 Other cardiomyopathies (principal); A69.20 Lyme disease, unspecified; F17.210 Nicotine dependence, cigarettes, uncomplicated; A69.23 Arthritis due to Lyme disease; A69.29 Other conditions associated with Lyme disease; L40.59 Other psoriatic arthropathy
CPT/HCPCS: 36415; 71046; 80053; 81001; 83036; 83605; 83690; 83735; 84443; 84484; 85007; 85025; 85651; 86140; 87040; 87086; 87476; 87636; 93005; 93306; 93458; 99152; 99285; C1725; C1769; C1894; C9803; G0378; J1644; Q9967; U0003; U0005

== ENCOUNTER → 2022-09-13 14:45 | Outpatient (CLI) | payer BC, SELFPAY | PROVIDERS: PCP Internal Medicine; Visit Provider Physician Assistant | DX: I42.8 Other cardiomyopathies (principal) | CPT/HCPCS: 93308 ==

== ENCOUNTER → 2022-09-22 20:11 | Outpatient (CLI) | payer BC, SELFPAY | LOC: RT 20:12 | PROVIDERS: PCP Nurse Practitioner; Visit Provider Nurse Practitioner Family | DX: G47.33 Obstructive sleep apnea (adult) (pediatric) (principal); R06.83 Snoring; R40.0 Somnolence; G47.9 Sleep disorder, unspecified | CPT/HCPCS: G0399 ==

== ENCOUNTER 2025-03-10 15:10 | Outpatient (CLI) | payer BC, SELFPAY ==
--- OUTSIDE RECORDS SUMMARY | 2025-02-16 08:30 | XMS_ITS | Encounter Summary ---
Author Organization [facility] Address [address] [place] [address] Care Team Providers Care Gas And Oil Checker Name Role Phone Fernando Morales MD Unavailable Unavailable Reason for Visit * Oncology Medication Prior Authorization (Routine) - Authorized Specialty Diagnoses / Procedures Referred By Contac t Referred To Contact Diagnoses Other psoriatic arthropathy (HCC) Other long filler cigar roller machine (current) drug therapy Procedures DC GOLIMUMAB FOR IV USE 1MG Sergo Martinez MD [address] [place] [address] Phone: tel: fax: [facility] [address] [place] [phone] Referral ID Status Reason Start Date Expiration Date V isits Requested Visits Authorized [id number] Authorized 10/22/2024 99 99 Encounter Details Date Type Department Care Team (Latest Contact Info) Description 02/16/2025 8:30 AM EST Office Visit [facility] [address] [place] [phone] Drug therapy (Primary Dx); Other psoriatic arthropathy (HCC) Social History Tobacco Use Types Packs/Day Years Used Date Smoking Tobacco: Every Day Cigarettes 1 20 Started: 05/24/1997; Last attempted to quit: 05/24/2017 Smokeless Tobacco: Never Alcohol Use Standard Drinks/Week Comments Yes 2 (1 standard drink = 0.6 oz pur e alcohol) PHQ-2 Answer Date Recorded PHQ-2 Total Score 0 11/04/2020 Sexually Active Control Partners Comments Yes Sex and Gender Information Value Date Recorded Sex Assigned at Not on file Legal Sex Male 10:40 PM EDT Gender Identity Not on file Sexual Orientation Not on file documented as of this encounter Last Filed Vital Signs Vital Sign Reading Time Taken Comments Blood Pressure 122/78 02/16/2025 9:17 AM EST Pulse 80 02/16/2025 9:17 AM EST Temperature 37.1 C (98.7 F) 02/16/2025 8:32 AM EST Respiratory Rate 16 02/16/2025 9:17 AM EST Oxygen Saturation 98% 02/16/2025 9:17 AM EST Inhaled Oxygen Concentration - - Weight 96.2 kg (212 lb) 02/16/2025 8:32 AM EST Height - - Body Mass Index 32.23 10/07/2024 2:17 PM EDT documented in this encounter Functional Status * Is the person deaf or does he/she have serious difficulty hearing? Answer Date of Assessment Author No 11/04/2020 9:47 AM EDT Estrellita Carrillo RMA * Is the person blind or does he/she have serious difficulty seeing even when wearing glasses? Answer Date of Assessment Author No 11/04/2020 9:47 AM EDT Estrellita Carrillo RMA * Does this person have serious difficulty walking or climbing stairs? Answer Date of Assessment Author No 11/04/2020 9:47 AM EDT Estrellita Carrillo RMA * Does this person have difficulty dressing or bathing? Answer Date of Assessment Author No 11/04/2020 9:47 AM EDT Estrellita Carrillo RMA * Because of a physical, mental or emotional condition, does this person have difficulty doing errands alone such as visiting a doctor's office or shopping? Answer Date of Assessment Author No 11/04/2020 9:47 AM EDT Estrellita Carrillo RMA documented as of this encounter Mental Status * Because of a physical, mental or emotional condition, does this person have serious difficulty concentrating, remembering or making decisions? Answer Entry Date Author No 11/04/2020 9:47 AM EDT Estrellita Carrillo RMA documented in this encounter Progress Notes * Michelle Garcia RN - 02/16/2025 8:30 AM EST pt received Simponi Aria 190mg, wasted 10mg. Pt stable at discharge. documented in this encounter Plan of Treatment Upcoming Encounters Date Type Department Care Team (Late st Contact Info) Description 04/13/2025 8:00 AM EST Office Visit [facility] [address] [place] [phone] 06/08/2025 8:00 AM EDT Office Visit [facility] [address] [place] [phone] documented as of this encounter Goals Goal Patient Goal Type Associated Problems Recent Progress Patient-Stated? Author Blood Pressure < 140/90 Blood Pressure 122/78(2024 9:17 AM EST) No Panchito Kumar MD Maintain a healthy diet, exercise regularly and maintain an ideal body weight General No Caryn Stafford LPN Stay Tobacco Free Lifestyle No Caryn Stafford LPN Weight < 175 lb (79.379 kg) Weight 212 lb (96.2 kg)( 8:32 AM EST) No Panchito Kumar MD documented as of this encounter Visit Diagnoses Diagnosis Drug therapy- Primary Encounter for other specified aftercare Other psoriatic arthropathy (HCC) documented in this encounter Administered Medications Inactive Administered Medications - up to 1 most recent administrations Medication Order MAR Action Action Date Dose Rate Site golimumab (SIMPONI ARIA) 192 mg in sodium chloride 0.9 % 100 mL infusion 192 mg (rounded from 192.4 mg = 2 mg/kg 96.2 kg), Intravenous, ONCE, 1 dose, On 02/16/25 at 0845, Administer over 30 Minutes, Infuse over 30 minutes 0.22micron filter required, Dx: 1. Drug therapy 2. Other psoriatic arthropathy (HCC)Indications:Drug therapy,Other psoriatic arthropathy (HCC) IV Started 02/16/2025 8:35 AM EST 190 mg 200 mL/hr documented in this encounter Orders Medications Ordered That Jovan ht Not Have Been Administered Count Last Ordered Date First Ordered Date golimumab (SIMPONI ARIA) 192 mg in sodium chloride 0.9 % 100 mL infusion 1 02/16/2025 documented in this encounter Care Teams Gas And Oil Checker Relationship Specialty Start Date End Date Fernando Morales MD Internal Medicine-Rheumatology 06/08/22 documented as of this encounter
[2025-03-10 18:57] LABS: Coronavirus 19, PCR Not Detected (NotDetected); Influenza A, PCR Not Detected (NotDetected); Influenza B, PCR Not Detected (NotDetected)
--- OUTSIDE RECORDS SUMMARY | 2025-03-11 12:42 | XMS_ITS | Clinical Summary ---
Author Organization [facility] Address [address] [place] [address] Phone Care Team Providers Care Pharmacy Manager Name Role Phone Fernando Morales MD Unavailable Unavailable Allergies No known active allergies Medications calcium carbonate (TUMS) 200 mg calcium (500 mg) Oral Tablet, Chewable Take 1 Tablet by mouth daily. Active amLODIPine (NORVASC) 5 mg Oral TabletIndications :Essential hypertension TAKE 1 TABLET BY MOUTH EVERY DAY 90 Tablet 2 2 Active golimumab (SIMPONI ARIA IV) Inject 194 mg into the vein every 30 days. Active folic acid (FOLVITE) 1 mg Oral TabletIndications :Encounter for long-term (current) use of high-risk medication Take 1 Tablet by mouth daily. 90 Tablet 1 5 Active methotrexate 2.5 mg Oral TabletIndications :Psoriatic arthritis (HCC) Take 6 Tablets by mouth once a week. 72 Tablet 5 Active Active Problems Patient Care Coordination No te Formatting of this note migh t be different from the original. BP 138/100 on 07/05/15, put on losartan, coming in next week for physical-will recheck bp. Problem Noted Date Diagnosed Date Left shoulder pain 06/17/2024 Assessment & Plan (10/07/2024 5:27 PM EDT): Pain is improved. Take Ibuprofen 800 mg three times daily as needed. Left shoulder x-rays ordered in May, x-rays not completed. He will hold on x- rays at this time since shoulders are improved. Assessment & Plan (06/17/2024 9:31 AM EDT): pain x 2 weeks Take Ibuprofen 800 mg three times daily as needed. Order left shoulder x-rays. Shoulder stiffness, left 06/17/2024 Assessment & Plan (10/07/2024 5:26 PM EDT): Range of motion improved. Left shoulder x-rays ordered in May, x-rays not completed. He will hold on x- rays at this time since shoulders are improved. Assessment & Plan (06/17/2024 9:31 AM EDT): Discussed & demonstrated range of motion exercises. Order left shoulder x-rays. Hallux rigidus of left foot 06/17/2024 Tobacco abuse 06/17/2024 Assessment & Plan (10/07/2024 5:21 PM EDT): Complete smoking cessation encouraged. Assessment & Plan (06/17/2024 9:30 AM EDT): Complete smoking cessation advised. Encounter for long-term (cur rent) use of high-risk medication 02/20/2023 Assessment & Plan (10/07/2024 5:33 PM EDT): ANTI-TNF: reviewed potential risks and side effects including, but not limited to, injection site or infusion reaction, increased risk of infection, increased risk of malignancy (debatable), increased risk of demyelinating syndromes, autoimmune phenomenon, cytopenias, and hepatotoxicity. Patient instructed to discontinue anti-TNF medication for febrile infection. METHOTREXATE: reviewed potential side effects including, but not limited to, mouth ulcers, anorexia, nausea, vomiting, diarrhea, liver test abnormalities, hypersensitivity lung reaction, cytopenias, rash, headache, fatigue, and slow hair loss. An increased risk of infection and low-grade lymphoma are also possible. Continue folic acid 1 mg daily. NSAIDS: We discussed the risk of the use of nonsteroidal anti-inflammatory medications (NSAIDs) which include gastrointestinal toxicity (such as ulceration and bleeding), renal toxicity, and potential cardiovascular toxicity. We discussed the risk factors which would prompt the use of gastrointestinal protective agents (use of high dose NSAIDs, age 65 or greater, the use of medications such as aspirin or prednisone, or a history of an ulcer). Take Ibuprofen with food or milk. Patient understands. 03/2016: neg hepatitis profile 05/2024: negative TB test Reviewed surveillance labs: 06/17/24 Ordered medication surveillance labs. Assessment & Plan (06/17/2024 9:33 AM EDT): ANTI-TNF: Previously have reviewed potential risks and side effects including, but not limited to, injection site or infusion reaction, increased risk of infection, increased risk of malignancy (debatable), increased risk of demyelinating syndromes, autoimmune phenomenon, cytopenias, and hepatotoxicity. Patient instructed to discontinue anti-TNF medication for febrile infection. METHOTREXATE: Previously have reviewed potential side effects including, but not limited to, mouth ulcers, anorexia, nausea, vomiting, diarrhea, liver test abnormalities, hypersensitivity lung reaction, cytopenias, rash, headache, fatigue, and slow hair loss. An increased risk of infection and low-grade lymphoma are also possible. Continue folic acid 1 mg daily. NSAIDS: We discussed the risk of the use of nonsteroidal anti-inflammatory medications (NSAIDs) which include gastrointestinal toxicity (such as ulceration and bleeding), renal toxicity, and potential cardiovascular toxicity. We discussed the risk factors which would prompt the use of gastrointestinal protective agents (use of high dose NSAIDs, age 65 or greater, the use of medications such as aspirin or prednisone, or a history of an ulcer). Take Ibuprofen with food or milk. Patient understands. 04/11: neg hepatitis profile 02/15: negative TB test Reviewed surveillance labs: 02/20/23 Ordered medication surveillance labs. Other psoriatic arthropathy 05/30/2022 Drug therapy 05/30/2022 Psoriatic arthritis 03/07/2016 Assessment & Plan (10/17/2024 12:32 PM EDT): Chronic, controlled failed Cimzia failed Orencia failed infliximab: secondary failure Continue Simponi Aria IV every 8 weeks. Continue MTX 6 tablets once a week. Take Ibuprofen 800 mg three times daily as needed. Assessment & Plan (10/17/2024 12:31 PM EDT): Chronic, 1 hour morning stiffness, no joint swelling failed Cimzia failed Orencia failed infliximab: secondary failure Continue Simponi Aria IV every 8 weeks. Continue MTX 6 tablets once a week. Refill after today's lab results are reviewed. Take Ibuprofen 800 mg three times daily as needed. Essential hypertension 07/05/2015 Chest pain 12/27/2012 Overview (12/27/2012): 1. Stress test 12-06-12 Negative for ischemia, Ef 65% 2. Stress test 12-06-12 Normal LV wall motion and function. Normal vlaves Stable and doing well. NO active CV issues. NO further CP, SOB ROS unremarkable OK to wean off Atenolol Follow cardiology as needed Cont to wean off tobacco Psoriasis Encounters Date Type Department Care Team Description 02/16/2025 8:30 AM EST Office Visit [facility] [address] [place] [address] Drug therapy (Primary Dx); Other psoriatic arthropathy (HCC) 12/22/2024 8:00 AM EDT Office Visit [facility] [address] [place] [address] Drug therapy (Primary Dx); Other psoriatic arthropathy (HCC) from Last 3 Months Immunizations Immunization Administration Dates Next Due [employer] SARS-CoV-2 Vaccine 08/17/2020 Td (adult), preservative free 03/23/2015 Surgical History Surgery Date Site/Laterality Comments DENTAL SURGERY several dental extractions upper and lower FOOT SURGERY 03/26/2011 - 03/25/2012 Right FOOT SURGERY 01/15/2018 Right right foot revision first metatarsophalangeal joint arthrodesis; Surgeon: Angel Oakley MD; Location: [facility]; Service: Orthopedics Medical devices from this surgery are in the Medical Devices section. Medical History Medical History Date Comments Osteoarthritis right foot Psoriasis bilateral legs a nd arms Heartburn Headache(784.0) Former smoker quit smoking 05/25 018 Hypertension Depression Carpal tunnel syndrome Psoriatic arthritis (HCC) Family History Medical History Relation Name Comments Migraines Father Arthritis Mother RA Diabetes Mother Migraines Mother Anesth Problems Neg Hx Relation Name Status Comments Father Alive Mother Alive Social History Tobacco Use Types Packs/Day Years Used Date Smoking Tobacco: Every Day Cigarettes 1 20 Started: 05/24/1997; Last attempted to quit: 05/24/2017 Smokeless Tobacco: Never Tobacco Cessation:Ready to Q uit: Not Asked; Counseling Given: Not Answered Alcohol Use Standard Drinks/Week Comments Yes 2 (1 standard drink = 0.6 oz pur e alcohol) PHQ-2 Answer Date Recorded PHQ-2 Total Score 0 11/04/2020 Sexually Active Control Partners Comments Yes Sex and Gender Information Value Date Recorded Sex Assigned at Not on file Legal Sex Male 10:40 PM EDT Gender Identity Not on file Sexual Orientation Not on file Last Filed Vital Signs Vital Sign Reading Time Taken Comments Blood Pressure 122/78 02/16/2025 9:17 AM EST Pulse 80 02/16/2025 9:17 AM EST Temperature 37.1 C (98.7 F) 02/16/2025 8:32 AM EST Respiratory Rate 16 02/16/2025 9:17 AM EST Oxygen Saturation 98% 02/16/2025 9:17 AM EST Inhaled Oxygen Concentration - - Weight 96.2 kg (212 lb) 02/16/2025 8:32 AM EST Height 172.7 cm (5' 8 ) 10/07/2024 2:17 PM EDT Body Mass Index 32.23 10/07/2024 2:17 PM EDT Plan of Treatment Upcoming Encounters Date Type Department Care Team (Late st Contact Info) Description 04/13/2025 8:00 AM EST Office Visit [facility] [address] [place] [address] 06/08/2025 8:00 AM EDT Office Visit [facility] [address] [place] [phone] Health Maintenance Due Date Last Done Comments Annual Wellness Exam 1976 Hepatitis B Vaccine (1 of 3 - 19+ 3-dose series) 1992 Pneumococcal Vaccine 50+ (1 of 2 - PCV) 1992 Zoster (1 of 2) 1992 DTaP/TDaP/Td (5 - Tdap) 03/24/2015 03/23/20 15, 11/09/1980, 12/13/1978, Additional history exists Cologuard 2018 Colon Cancer Screening 2018 Colonoscopy 2018 FIT 2018 Sigmoidoscopy 2018 Virtual Colonography 2018 COVID-19 Vaccine (#1) 09/14/2020 Low Dose Lung Cancer Screening 11/06/2023 Influenza Vaccine (#1) 2024 6 (Declined), 04/13/2015 (Declined), 05/04/2014 (Declined) Meningococcal B Vaccine Aged Out No l onger eligible based on patient's age to complete this topic Goals Goal Patient Goal Type Associated Problems [...] 8:32 AM EST) No Panchito Kumar MD Medical Devices Implanted Type Area Skein Winding Operator Device Identifier Shelf Expiration Date Model / Serial / Lot Screw Bone 3mm 26mm Low Profile Screws Titanium Ankle Variab - [id number] Implanted:Qty: 1 on 01/15/2018 by Angel Oakley MD at [facility] Screw Right: Foot AR[employer] AR-8933V-2 6 / AR-8933V-2 6 / Log [id number] - Arthrex Forefoot Fusion Module Tray - 1 - Screw Low Profile Ti 3.0 Mm X 34mm Cannulated Partially Threaded Implanted:Qty: 2 on 04/21/2011 at [facility] ARTHREX AR-8933-34 PT / / Log [id number] - Arthrex Forefoot Fusion Module Tray - 1 - Screw Low Profile Ti 3.0 Mm X 36mm Cannulated Partially Threaded Implanted:Qty: 1 on 04/21/2011 at [facility] ARTHREX AR-8933-36 PT / / Log [id number] - Arthrex Forefoot Fusion Module Tray - 1 - Guidewire .062 Trocar Tip Implanted:Qty: 1 on 04/21/2011 at [facility] AR[employer]X AR-8941K / / Log [id number] - Arthrex Forefoot Fusion Module Tray - 1 - Guide Wire .045 X 5.91 Implanted:Qty: 3 on 04/21/2011 at [facility] AR[employer]X AR-8933K / / Gw Orth 150mm .062in Troc Tip Disp - [id number] Implanted:Qty: 2 on 01/15/2018 by Angel Oakley MD at [facility] Right: Foot AR[employer] AR-8941K / / Guide Wire .045 X 5.91 - [id number] Implanted:Qty: 3 on 01/15/2018 by Angel Oakley MD at [facility] Right: Foot AR[employer] AR-8933K / / Screw Deysi Ti 3.0 X 18mm - [id number] Implanted:Qty: 1 on 01/15/2018 by Angel Oakley MD at [facility] Right: Foot AR[employer]X AR-8933V-1 8 / / Screw Deysi Ti 3.0 X 18mm - [id number] Implanted:Qty: 1 on 01/15/2018 by Angel Oakley MD at [facility] Right: Foot AR[employer]X AR-8933V-1 8 / / Filler Bone Void 1cc Demineralized Bone Matrix Allosync Gel - [id number] Implanted:Qty: 1 on 01/15/2018 by Angel Oakley MD at [facility] Right: Foot ARTHREX 08/21/2019 ABS-2013-0 1 / [id number] / Screw Bn 3mm 20mm Loprfl Scr Ti T10 Ft Forefoot [address] Sld - [id number] Implanted:Qty: 1 on 01/15/2018 by Angel Oakley MD at [facility] Right: Foot ARTH[employer]X AR-8933-20 / / Screw Low Profile Ti 3.0 Mm X 32mm Cannulated Partially Threaded - [id number] Implanted:Qty: 1 on 01/15/2018 by Angel Oakley MD at [facility] Right: Foot ARTH[employer]X AR-8933-32 PT / / Screw Low Profile Ti 3.0 Mm X 38mm Cannulated Partially Threaded - [id number] Implanted:Qty: 1 on 01/15/2018 by Angel Oakley MD at [facility] Right: Foot ARTH[employer]X AR-8933-38 PT / / Plate Std Strg Ti Loprfl Mtp Plt Bn - [id number] Implanted:Qty: 1 on 01/15/2018 by Angel Oakley MD at [facility] Right: Foot AR[employer]X AR-8944-S / / Insurance ANTHEM PPO BRENNON PPO BREN[place] PPO Care Teams Pharmacy Manager Relationship Specialty Start Date End Date Fernando Morales MD Internal Medicine-Rheumatology 06/08/22
--- OUTSIDE RECORDS SUMMARY | 2025-03-11 12:42 | XMS_ITS | Clinical Summary ---
Author Organization [facility] Address [address] [place] [address] Care Team Providers Care Deep Tissue Massage Therapist Name Role Phone Unavailable Primary Care Provider Unavailabl e Social History Tobacco Use Types Packs/Day Years Used Date Smoking Tobacco: Never Assessed Sex and Gender Information Value Date Recorded Sex Assigned at Not on file Legal Sex Male 3:11 PM EDT Gender Identity Not on file Sexual Orientation Not on file Last Filed Vital Signs Vital Sign Reading Time Taken Comments Blood Pressure 150/82 09/13/2022 4:43 PM EDT Pulse 101 09/13/2022 4:43 PM EDT Temperature - - Respiratory Rate - - Oxygen Saturation - - Inhaled Oxygen Concentration - - Weight 94.3 kg (208 lb) 09/13/2022 4:43 PM EDT Height 177.8 cm (5' 10 ) 09/13/2022 4:43 PM EDT Body Mass Index 29.84 09/13/2022 4:43 PM EDT Plan of Treatment Health Maintenance Due Date Last Done Comments [facility]-Depression Screening 1973 [facility]-Infant/Child/Adol SDOH Screenings 1973 [facility]- SDOH Screenings 11/06/1991 [facility]-Adult SDOH Screenings 11/06/1991 [facility]-Hepatitis B Vaccines (1 of 3 - 19+ 3-dose series) 1992 [facility]-DTaP,Tdap,and Td Vaccines (5 - Tdap) 03/24/2015 03/23/2015, 11/09/1980, 12/13/1978, Additional history exists CT Colonography 2018 Colonoscopy 2018 FIT-DNA 2018 FIT 2018 FOBT 2018 Sigmoidoscopy 2018 [facility]-Colorectal Cancer Screening 2018 [facility]-Pneumococcal Vaccine: 50+ Years (1 of 1 - PCV) 11/06/2023 [facility]-Zoster Vaccines (1 of 2) 11/06/2023 [id number] Vaccine (2 - 2024- season) 2024 08/17/2020 [facility]-Influenza Vaccine (#1) 2024 [facility]-IPV Vaccines Aged Out 11/09/1980, , 08/09/1978, Additional history exists No longer eligible based on patient's age to complete this topic HPV Vaccines (No Doses Required) Completed [facility]-HIB Vaccines Aged Out No longer e ligible based on patient's age to complete this topic [facility]-Hepatitis A Vaccines Aged Out No longer eligible based on patient's age to complete this topic [facility]-Rotavirus Vaccines Aged Out No lo nger eligible based on patient's age to complete this topic Insurance ERICA
== END 2025-03-10 23:59 | disposition home or self-care (01) ==
LOC: LAB.DROPOF 03-11 11:05
PROVIDERS: PCP Nurse Practitioner; Visit Provider Nurse Practitioner
DX: J01.00 Acute maxillary sinusitis, unspecified (principal); R06.2 Wheezing
CPT/HCPCS: 87631